=== PATIENT | male | born 1950 | race Caucasian/White ===

== ENCOUNTER → 2017-02-14 | Outpatient (CLI) | payer OTHER ==
[~2017-02-14] MED LIST: ACTONEL PO; AMOXICILLIN PO; AMPICILLIN PO; ASPIRIN81 M1 PO; ASPIRIN81 MG PO; CALCIUM 5001 TAB PO; CALCIUM ANTACI500 MG PO; CALCIUM500 MG PO; CLINDAMYCIN HC300 MG PO; COREG3.125 MG PO; FLOMAX0.4 M1 PO; LIDOCAINE VISCOUS PO; LISINOPRIL10 MG PO; MORPHINE IR PO; MORPHINE SULFA100 M1 PO; PRAVASTATIN SOD40 MG PO; RECLAST 55 MG/100 M INJ; VITAMIN D31000 UNIT PO; VOLTAREN50 MG PO
== END | disposition home or self-care (01) ==
LOC: CSSDAY 08:54
DX: M81.0 Age-related osteoporosis without current pathological fracture (principal)
CPT/HCPCS: 96374; J3489